=== PATIENT | female | born 1965 | race Caucasian/White ===

== ENCOUNTER → 2019-07-27 | Day surgery (SDC) | payer BC ==
[~2019-07-27] VITALS: Ht 167.6 cm; Wt 88.5 kg
[~2019-07-27] MED LIST: ESCITALOPRAM OX20 MG PO; LEVOTHYROXINE50 MCG PO; LEXAPRO5 M1 PO; PRILOSEC20 M1 PO; SYNTHROID,LEV125 MCG PO
--- NOTE | ~2019-07-27 | O ---
[place], [place] OPERATIVE NOTE NAME: [facility] UNIT #: [id number] ROOM: DOCTOR: CESAR STERLING MD BIRTHDATE: [birth year] DOS: 07/27/2019 GASTROENDOSCOPIC REPORT HISTORY OF PRESENT ILLNESS: A 54-year-old presented with epigastric distress, history of dyspepsia, abdominal pain and epigastric pain. The patient is scheduled already for oophorectomy. ALLERGIES: ASPIRIN. FAMILY HISTORY: Noncontributory. PAST SURGICAL HISTORY: x 2, tubal ligation and T and A. PAST MEDICAL HISTORY: Hypothyroidism, depression, anxiety, gastritis. SOCIAL HISTORY: Smoker, rare alcohol consumer. PROCEDURE: Today's procedure part of investigation is colonoscopy and panendoscopy. PREMEDICATION: Propofol. SCOPE: Olympus forward-viewing gastroscope Q10 video. REPORT: After putting the patient in left lateral position and application of lubricant to the scope, scope was introduced. Thereafter, under direct visualization, advanced through the length of esophagus without difficulty. Gastric pouch was entered. Gastritis seen. Antrum biopsy obtained. Duodenal bulb, second and third part within normal limit. The patient extubated, tolerated the procedure well. IMPRESSION: Gastritis, status post biopsy. PLAN AND DISCUSSION: We are going to address the dyspepsia and the gastritis concerns with omeprazole 40 mg daily. Antireflux measures and follow up as an outpatient. Awaiting H. pylori results. Furthermore, I am going to proceed with colonoscopic evaluation. GASTROENDOSCOPIC REPORT INDICATIONS: The patient has presented with chief complaint of abdominal pain. PROCEDURE #2: Today's procedure part of investigation is colonoscopy plus polypectomy. PREMEDICATION: Propofol. SCOPE: Olympus forward-viewing colonoscope 10L video. [place], [place] OPERATIVE NOTE NAME: KRISTOFER SINHA UNIT #: [id number] ROOM: DOCTOR: CESAR STERLING MD BIRTHDATE: [birth year] DESCRIPTION OF PROCEDURE: After putting the patient in left lateral position and application of lubricant to the scope, the scope was introduced. Thereafter, under direct visualization, advanced through the length of colon without difficulty. Diverticulosis of the colon of moderate degree seen. Base of the cecum explored, appendiceal orifice identified, and ileocecal valve was defined, polypoid lesion in hepatic flexure with piecemeal polypectomy removed, samples of which was recovered. Photographic series of the base of cecum obtained. The patient extubated, tolerated the procedure well. IMPRESSION: Sessile colonic polyp, base of the cecum, status post piecemeal polypectomy, diverticulosis of the colon, status post photographic series. PLAN: High fiber diet. ACTIVITY: Ad evan. FOLLOWUP: As outpatient. Thank you very much indeed. CESAR STERLING MD CM:OPRECORD:OPERATIVE NOTE [id number] CESAR STERLING MD 07/27/19 1330 interface
[2019-07-27 10:50] VITALS: BP 133/76
[2019-07-27 11:58] VITALS: BP 122/71
[2019-07-27 12:14] VITALS: BP 127/77
[2019-07-27 12:21] VITALS: BP 119/80
== END | disposition home or self-care (01) ==
LOC: SDC 07-20 11:00
DX: D12.5 Benign neoplasm of sigmoid colon (principal); K29.50 Unspecified chronic gastritis without bleeding; K57.30 Diverticulosis of large intestine without perforation or abscess without bleeding; I10 Essential (primary) hypertension; F41.9 Anxiety disorder, unspecified; F32.9 Major depressive disorder, single episode, unspecified; G47.30 Sleep apnea, unspecified; E03.9 Hypothyroidism, unspecified; Z98.890 Other specified postprocedural states; Z79.899 Other long term (current) drug therapy; Z88.8 Allergy status to other drugs, medicaments and biological substances; Z87.891 Personal history of nicotine dependence; Z72.89 Other problems related to lifestyle

== ENCOUNTER 2019-12-07 19:45 | Emergency (ER) | payer BC ==
[~2019-12-07] VITALS: Ht 167.6 cm; Wt 90.7 kg
[2019-12-07 22:54] LABS: BASO # 0.1 10*3/uL (0.0-0.1); BASO % 0.6 % (0.0-1.0); EOS # 0.2 10*3/uL (0.0-0.4); EOS % 2.5 % (1.0-4.0); HEMOGLOBIN 13.3 g/dl (12.0-16.0); LYMPH # 2.7 10*3/uL (1.3-4.4); LYMPH % 29.5 % (27.0-41.0); MEAN CELL VOLUME 96.7 fl (81.0-99.0); MEAN CORPUSCULAR HGB 31.4 pg (27.0-31.0); MEAN CORPUSCULAR HGB CONC 32.4 g/dl (33.0-37.0); MEAN PLATELET VOLUME 12.3 fl (9.6-12.3); MONO # 0.7 10*3/uL (0.1-1.0); MONO % 7.3 % (3.0-9.0); NEUT # 5.4 10*3/uL (2.3-7.9); NEUT % 59.8 % (47.0-73.0); PLATELET COUNT AUTOMATED 184 10*3/uL (130-400); RED BLOOD COUNT 4.24 10*6/uL (4.10-5.10); RED CELL DISTRI WIDTH 13.4 % (0-14.5); WHITE BLOOD COUNT 9.1 10*3/uL (4.8-10.8)
[2019-12-07 23:10] LABS: ALBUMIN 3.7 gm/dl (3.1-4.5); ALKALINE PHOSPHATASE 119 U/L (45-117); BUN 15 mg/dl (7-24); CHLORIDE 106 mmol/L (98-107); CREATININE 0.76 mg/dL (0.55-1.02); POTASSIUM 4.1 mmol/L (3.5-5.1); SGOT/AST 21 IU/L (3-35); SGPT/ALT 37 U/L (12-78); SODIUM 139 mmol/L (136-145); TOTAL PROTEIN 7.1 gm/dL (6.4-8.2)
[2019-12-08 00:18] LABS: BILIRUBIN NEGATIVE (NEGATIVE); BLOOD NEGATIVE (NEGATIVE); CLARITY SL CLOUDY (CLEAR); COLOR YELLOW (YELLOW); GLUCOSE NEGATIVE (NEGATIVE); KETONE NEGATIVE (NEGATIVE); LEUKO ESTERASE NEGATIVE (NEGATIVE); NITRITE NEGATIVE (NEGATIVE); PH 6.5 (5.0-9.0); UROBILINOGEN 0.2 E.U./dl (0.2-1.0)
[2019-12-08 00:34] LABS: BACTERIA 1+; WBC 0-2 wbc/hpf (0-5)
== END 2019-12-08 03:46 | disposition home or self-care (01) ==
LOC: ED 19:45
PROVIDERS: Emergency Medicine
DX: K43.9 Ventral hernia without obstruction or gangrene (principal); E03.9 Hypothyroidism, unspecified; I10 Essential (primary) hypertension; Z88.6 Allergy status to analgesic agent; Z79.899 Other long term (current) drug therapy

== ENCOUNTER 2019-12-09 18:46 | Inpatient (IN) | payer BC ==
[~2019-12-09] VITALS: Ht 167.6 cm; Wt 97.3 kg
[2019-12-09 18:54] VITALS: BP 154/90
[2019-12-09 19:47] LABS: BASO # 0.1 10*3/uL (0.0-0.1); BASO % 0.6 % (0.0-1.0); EOS # 0.2 10*3/uL (0.0-0.4); EOS % 2.1 % (1.0-4.0); HEMATOCRIT 40.7 % (37.0-47.0); HEMOGLOBIN 12.9 g/dl (12.0-16.0); LYMPH # 2.4 10*3/uL (1.3-4.4); LYMPH % 29.5 % (27.0-41.0); MEAN CELL VOLUME 97.4 fl (81.0-99.0); MEAN CORPUSCULAR HGB 30.9 pg (27.0-31.0); MEAN CORPUSCULAR HGB CONC 31.7 g/dl (33.0-37.0); MEAN PLATELET VOLUME 12.7 fl (9.6-12.3); MONO # 0.6 10*3/uL (0.1-1.0); MONO % 7.4 % (3.0-9.0); NEUT # 4.9 10*3/uL (2.3-7.9); NEUT % 60.3 % (47.0-73.0); PLATELET COUNT AUTOMATED 171 10*3/uL (130-400); RED BLOOD COUNT 4.18 10*6/uL (4.10-5.10); RED CELL DISTRI WIDTH 13.3 % (0-14.5); WHITE BLOOD COUNT 8.1 10*3/uL (4.8-10.8)
[2019-12-09 20:17] LABS: ALBUMIN 3.5 gm/dl (3.1-4.5); ALKALINE PHOSPHATASE 118 U/L (45-117); BUN 16 mg/dl (7-24); CHLORIDE 106 mmol/L (98-107); CREATININE 0.97 mg/dL (0.55-1.02); POTASSIUM 3.9 mmol/L (3.5-5.1); SGOT/AST 34 IU/L (3-35); SGPT/ALT 45 U/L (12-78); SODIUM 142 mmol/L (136-145); TOTAL PROTEIN 6.9 gm/dL (6.4-8.2)
[2019-12-09 20:36] LABS: BILIRUBIN NEGATIVE (NEGATIVE); BLOOD NEGATIVE (NEGATIVE); CLARITY CLEAR (CLEAR); COLOR YELLOW (YELLOW); GLUCOSE NEGATIVE (NEGATIVE); KETONE NEGATIVE (NEGATIVE); LEUKO ESTERASE NEGATIVE (NEGATIVE); NITRITE NEGATIVE (NEGATIVE)
[2019-12-09 20:58] LABS: BACTERIA 1+; EPITHELIAL CELLS 0-2; WBC 0-2 wbc/hpf (0-5)
--- NOTE | 2019-12-09 22:12 | NUR ---
PT IS RESTING IN BED WITHOUT ANY SIGNS OF ACUTE DISTRESS NOTED AT THIS TIME. WILL CONTINUE TO MONITOR. VS STABLE.
[2019-12-09 22:13] VITALS: BP 146/88
[2019-12-10] VITALS (11 sets, daily range): BP systolic 116–144; BP diastolic 66–94
--- NOTE | 2019-12-10 00:20 | NUR ---
Time: 19 A 54 year old FEMALE admitted to 5E under services of RACHEL PUGH DO. Pt. arrived via bed from ER. Chief complaint: ABDOMINAL PAIN. LAMBERT TOMLIN
[2019-12-10] MEDS ORDERED: EFFEXOR XR150 M1 PO (00:37)
--- NOTE | 2019-12-10 00:50 | NUR ---
AWARE THAT HOME MED WERE VERIFIED
--- NOTE | 2019-12-10 00:54 | NUR ---
PATIENT MEDICATED WITH MORPHINE FOR C/O ABD PAIN 07/02. WILL MONITOR
--- NOTE | 2019-12-10 01:54 | NUR ---
MORPHINE EFFECTIVE FOR PAIN
--- NOTE | 2019-12-10 05:32 | NUR ---
CALLED AND PATIENTS STATUS. STATED THAT HE WILL SEE PATIENT THIS AFTERNOON AND PATIENT IS TO REMAIN NPO.
[2019-12-10 06:39] LABS: BASO # 0.1 10*3/uL (0.0-0.1); BASO % 0.7 % (0.0-1.0); EOS # 0.2 10*3/uL (0.0-0.4); EOS % 3.1 % (1.0-4.0); HEMATOCRIT 41.1 % (37.0-47.0); HEMOGLOBIN 12.9 g/dl (12.0-16.0); LYMPH # 2.8 10*3/uL (1.3-4.4); LYMPH % 41.1 % (27.0-41.0); MEAN CELL VOLUME 97.4 fl (81.0-99.0); MEAN CORPUSCULAR HGB 30.6 pg (27.0-31.0); MEAN CORPUSCULAR HGB CONC 31.4 g/dl (33.0-37.0); MEAN PLATELET VOLUME 12.8 fl (9.6-12.3); MONO # 0.5 10*3/uL (0.1-1.0); MONO % 7.7 % (3.0-9.0); NEUT # 3.2 10*3/uL (2.3-7.9); PLATELET COUNT AUTOMATED 174 10*3/uL (130-400); RED BLOOD COUNT 4.22 10*6/uL (4.10-5.10); RED CELL DISTRI WIDTH 13.3 % (0-14.5); WHITE BLOOD COUNT 6.8 10*3/uL (4.8-10.8)
[2019-12-10 06:51] LABS: ALBUMIN 3.4 gm/dl (3.1-4.5); ALKALINE PHOSPHATASE 110 U/L (45-117); BUN 12 mg/dl (7-24); CHLORIDE 107 mmol/L (98-107); CHOLESTEROL 246 mg/dL (<200); CREATININE 0.84 mg/dL (0.55-1.02); FREE T4 0.84 ng/dl (0.76-1.46); HDL CHOLESTEROL 89 mg/dl (40-60); LDL CHOLESTEROL 144 mg/dL (9-159); PHOSPHOROUS 4.1 mg/dL (2.5-4.9); POTASSIUM 3.8 mmol/L (3.5-5.1); SGOT/AST 23 IU/L (3-35); SGPT/ALT 44 U/L (12-78); SODIUM 142 mmol/L (136-145); TOTAL PROTEIN 6.6 gm/dL (6.4-8.2); TRIGLYCERIDES 66 mg/dl (<150); VLDL CHOLESTEROL 13 mg/dL (6-40)
[2019-12-10 07:22] LABS: VITAMIN D, 25-HYDROXY 22.5 ng/mL (30-100)
--- NOTE | 2019-12-10 14:00 | NUR ---
PATIENT TAKEN TO SURGERY AT THIS TIME.
--- NOTE | 2019-12-10 17:00 | NUR ---
PATIENT MEDICATED WITH MORPHINE AT THIS TIME PER ORDER FOR COMPLAINTS OF POST-OP INCISIONAL PAIN 09/01. WILL MONITOR FOR EFFECTIVENESS.
--- NOTE | 2019-12-10 19:32 | NUR ---
PATIENT INSIST ON HAVING ALL FOUR HAND RAILS UP AT THIS THIS.
--- NOTE | 2019-12-10 20:54 | NUR ---
PATIENT MEDICATED WITH MORPHINE FOR C/O 8/ PAIN. WILL MONITOR
--- NOTE | 2019-12-10 21:54 | NUR ---
MORPHINE SOMEWHTA EFFECTIVE. PATIENT STATED SHE WILL CALL LATER FOR [place].
--- NOTE | 2019-12-10 22:12 | NUR ---
PATIENT MEDICATED WITH NORCO FOR C/O ABD PAIN 04/01. WILL MONITOR
--- NOTE | 2019-12-10 23:12 | NUR ---
NORCO EFFECTIVE FOR PAIN
[2019-12-11] VITALS: BP 110/56
--- NOTE | 2019-12-11 01:06 | NUR ---
PATIENT MEDICATED WITH MORPHINE FOR C/O ABD PAIN 06/01. WILL MONITOR
--- NOTE | 2019-12-11 01:07 | NUR ---
PATIENTS CALLED IN. ASKED IF THERE WAS ANY WAY THAT HE WOULD BE ABLE TO COME DOWN AND SEE HIS . EXPLAINED TO HIM THAT OUR VISITING HOURS. HE STATED THAT SHE IS REPEATEDLY CALLING AND TEXTING HIM AND HE THINKS THAT IT WOULD HELP THE SITUATION IF HE CAME DOWN TO SEE HER. THIS NURSE EXPLAINED ONCE AGAIN THAT VISITING HOURS WERE OVER. PATIENTS PROCEEDED TO HANG UP ON THIS NURSE
--- NOTE | 2019-12-11 01:10 | NUR ---
PATIENT STATED THAT WAS MESSAGING HER AND WAS DRINKING AT HOME. PATIENT STATED SHE WAS FINE.
--- NOTE | 2019-12-11 04:51 | NUR ---
PATIENT MEDICATED WITH NORCO FOR 6/10 ABD PAIN. WILL MONITOR
[2019-12-11 08:00] VITALS: BP 123/62
[2019-12-11 08:49] LABS: BASO % 0.1 % (0.0-1.0); EOS % 0.1 % (1.0-4.0); HEMATOCRIT 38.8 % (37.0-47.0); HEMOGLOBIN 12.4 g/dl (12.0-16.0); LYMPH # 1.1 10*3/uL (1.3-4.4); LYMPH % 7.3 % (27.0-41.0); MEAN CELL VOLUME 98.5 fl (81.0-99.0); MEAN CORPUSCULAR HGB 31.5 pg (27.0-31.0); MEAN PLATELET VOLUME 12.7 fl (9.6-12.3); MONO # 0.6 10*3/uL (0.1-1.0); NEUT # 13.2 10*3/uL (2.3-7.9); NEUT % 87.9 % (47.0-73.0); PLATELET COUNT AUTOMATED 178 10*3/uL (130-400); RED BLOOD COUNT 3.94 10*6/uL (4.10-5.10); RED CELL DISTRI WIDTH 13.1 % (0-14.5)
[2019-12-11 09:06] LABS: ALBUMIN 3.3 gm/dl (3.1-4.5); ALKALINE PHOSPHATASE 112 U/L (45-117); BUN 9 mg/dl (7-24); CHLORIDE 107 mmol/L (98-107); CREATININE 0.89 mg/dL (0.55-1.02); POTASSIUM 4.5 mmol/L (3.5-5.1); SGOT/AST 16 IU/L (3-35); SGPT/ALT 36 U/L (12-78); SODIUM 140 mmol/L (136-145); TOTAL PROTEIN 6.9 gm/dL (6.4-8.2)
--- NOTE | 2019-12-11 09:30 | NUR ---
DRESSING CHANGED TO LEFT LOWER ABD AT THIS TIME. INCISION DRY, WELL APPROXIMATED, NO DRAINAGE OR FOUL ODOR. STAPES INTACT. SCANT AMOUNT OF BLOODY DRAINAGE WAS NOTED TO OLD BANDAGE. PT TOLERATED DRESSING CHANGE WELL.
--- NOTE | 2019-12-11 11:45 | NUR ---
PT MEDICATED WITH PO NORCO AT THIS TIME FOR 6/10 PAIN TO LLQ INCISION. WILL MONITOR FOR EFFECTIVENESS.
[2019-12-11 12:00] VITALS: BP 112/65
--- NOTE | 2019-12-11 15:40 | NUR ---
PT C/O LOWER ABDOMINAL PAIN, RATES PAIN 8 OR 9 ON PAIN SCALE 0-10. MEDICATED WITH NORCO PO PER PRN ORDER, SEE EMAR. CALL LIGHT IN REACH. SEE SHIFT ASSESSMENT.
[2019-12-11 16:00] VITALS: BP 101/56
--- NOTE | 2019-12-11 19:14 | NUR ---
24 HR CHART CHECK COMPLETE.
--- NOTE | 2019-12-11 19:58 | NUR ---
PT IS LAYING IN BED AT THIS TIME. SHE STATES THAT SHE IS EXPERIENCING PAIN AT SURGICAL SITE RATED A 8/10. PRN NORCO ADMINISTERED WELL PRN DULCOLAX FOR C/O CONSTIPATION. BSX4 NORMOACTIVE. DRESSING IS CLEAN DRY AND INTACT WITH THE ADDITIONAL USE OF AN ABDOMINAL BINDER. BED IS LOW, CALL LIGHT WITHIN REACH. WILL CONTINUE TO MONITOR.
[2019-12-11 20:00] VITALS: BP 143/92
--- NOTE | 2019-12-11 20:45 | NUR ---
PT ASLEEP IN BED AT THIS TIME. PRN NORCO EFFECTIVE.
[2019-12-12] VITALS: BP 134/70
[2019-12-12 08:00] VITALS: BP 126/69
--- NOTE | 2019-12-12 08:28 | NUR ---
KRISTOFER SINHA [id number] Please refer to the physician's history and physical for past medical history, comorbid conditions, and allergies. Diagnosis: ACUTE ABDOMINAL PAIN ABDOMINAL HERNIA Vamsi Score: 23,LOW OR NO RISK WOUND DESCRIPTIONS: Patient states she had surgery Thursday morning for a hernia repair. Incision to LLQ has 4x4s and tegaderm dressing at time of assessment. No strikethrough noted at time of assessment. No erythema noted at time of assessment. Patient states this dressing was placed Thursday night. Patient states this area is tender to touch. Surface the patient is resting on: Isoflex SKIN PREVENTION RECOMMENDATION: 1. Pressure redistribution support surface as appropriate 2. Elevate heels 3. Remove boots/TEDS every shift and reapply 4. Head of bed 30 degrees as tolerated 5. Assess nutrition and hydration 6. Manage moisture 7. Avoid the use of containment devices while in bed 8. Use absorptive products on surfaces limit layers of linens on bed 9. Turn and reposition every 1-2 hours in bed and every 1 hour in chair as tolerated 10. Weight shifts every 15 minutes while up in chair 11. Offloading with pillows or device to keep heels elevated off bed 12. Monitor skin at least every shift 13. Inspect under medical devices twice a day WOUND TREATMENT RECOMMENDATIONS: Keep dsd clean dry and intact.
--- NOTE | 2019-12-12 09:00 | NUR ---
Gear Machine Operator General in to talk to patient. Patient states lives at home with tere. There are few steps in the home. Physician: akosua melissa Pharmacy: [facility] [place] health services: none Patient's level of ADLs: INDEPENDENT Patient has working utilities: all working DME: none Follow-up physician's appointment after d/c: will be made by hospitalist nurse director upon discharge Does patient want to access PORTAL?: no Discharge plan discussed with patient, present, she states she lives at home with her , she is independent in adls and ambulation, she states she will return home when medically stable and denies any home needs, case management will follow. USHA DÍAZ
[2019-12-12] MEDS ORDERED: VITAMIN D32000 UNI1 PO (09:52)
[2019-12-12] MEDS ORDERED: BISACODYL LAXATI5 MG PO (09:52)
[2019-12-12] MEDS ORDERED: HYDROCODONE-AC1 EAC1 PO (09:52)
--- NOTE | 2019-12-12 10:15 | NUR ---
CALLED PHARMACY [facility] THEY WILL SEND UP HOME MEDICATIONS
--- NOTE | 2019-12-12 10:17 | NUR ---
IN TO PT ROOM TO DISCUSS DISCHARGE AND PLANS, PT VERBALIZES AGREEMENT. REMOVED IV AT THIS TIME. PT HAS PAPERS AND MEDICATIONS IN HOME PHARMACY. PT AHS NO QUESTIONS AT THIS TIME
--- NOTE | 2019-12-12 10:40 | NUR ---
CALLED DR MOODY PER PT REQUEST WONDERING IF THE CAN GET A SLIP STATING HE HAS BEEN OFF WORK DUE TO CARING FOR HIS . HE STATES OK THAT I CAN WRITE IT OUT
--- NOTE | 2019-12-12 11:00 | NUR ---
PT IS WITH AND IS BEING WHEELED OUT IN A WHEELCHAIR AT THIS TIME
== END 2019-12-12 11:00 | disposition home or self-care (01) | DRG 355 ==
LOC: ED 18:46 → 5E 23:59
PROVIDERS: Emergency Medicine Emergency Medical Services; Family Medicine; Internal Medicine; ADMIT Internal Medicine
PROC: 0WUF0JZ Supplement Abdominal Wall with Synthetic Substitute, Open Approach (ICD-10-PCS; principal; 2019-12-10)
DX: K43.6 Other and unspecified ventral hernia with obstruction, without gangrene (principal); E03.9 Hypothyroidism, unspecified; F32.9 Major depressive disorder, single episode, unspecified; F41.9 Anxiety disorder, unspecified; E55.9 Vitamin D deficiency, unspecified; E66.9 Obesity, unspecified; G89.18 Other acute postprocedural pain; I10 Essential (primary) hypertension; Z68.34 Body mass index [BMI] 34.0-34.9, adult; Z90.721 Acquired absence of ovaries, unilateral; Z98.51 Tubal ligation status; Z88.6 Allergy status to analgesic agent; Z79.899 Other long term (current) drug therapy

== ENCOUNTER 2019-12-29 13:20 | Emergency (ER) | payer BC ==
[~2019-12-29] VITALS: Ht 167.6 cm; Wt 90.7 kg
[~2019-12-29 13:20] MED LIST changes: +BISACODYL LAXATI5 MG PO; +EFFEXOR XR150 M1 PO; +HYDROCODONE-AC1 EAC1 PO; +VITAMIN D32000 UNI1 PO
[2019-12-29 14:08] LABS: BASO # 0.1 10*3/uL (0.0-0.1); BASO % 0.4 % (0.0-1.0); EOS # 0.1 10*3/uL (0.0-0.4); EOS % 0.7 % (1.0-4.0); HEMATOCRIT 39.3 % (37.0-47.0); HEMOGLOBIN 12.7 g/dl (12.0-16.0); LYMPH # 1.5 10*3/uL (1.3-4.4); LYMPH % 12.6 % (27.0-41.0); MEAN CELL VOLUME 96.6 fl (81.0-99.0); MEAN CORPUSCULAR HGB 31.2 pg (27.0-31.0); MEAN CORPUSCULAR HGB CONC 32.3 g/dl (33.0-37.0); MEAN PLATELET VOLUME 12.3 fl (9.6-12.3); MONO % 8.5 % (3.0-9.0); NEUT % 77.5 % (47.0-73.0); PLATELET COUNT AUTOMATED 217 10*3/uL (130-400); RED BLOOD COUNT 4.07 10*6/uL (4.10-5.10); RED CELL DISTRI WIDTH 13.1 % (0-14.5); WHITE BLOOD COUNT 11.6 10*3/uL (4.8-10.8)
[2019-12-29 14:25] LABS: ALBUMIN 3.4 gm/dl (3.1-4.5); ALKALINE PHOSPHATASE 196 U/L (45-117); BUN 10 mg/dl (7-24); CHLORIDE 101 mmol/L (98-107); CREATININE 0.91 mg/dL (0.55-1.02); SGOT/AST 30 IU/L (3-35); SGPT/ALT 46 U/L (12-78); SODIUM 135 mmol/L (136-145); TOTAL PROTEIN 7.4 gm/dL (6.4-8.2)
[2019-12-29 14:26] LABS: TROPONIN I < 0.015 ng/ml (<0.045)
[2019-12-29 14:29] LABS: ACT PARTIAL THROMBO TIME 29.5 SECONDS (20.0-32.1)
[2019-12-29 14:43] LABS: BACTERIA 4+; BILIRUBIN NEGATIVE (NEGATIVE); BLOOD 1+ (NEGATIVE); CLARITY CLOUDY (CLEAR); COLOR YELLOW (YELLOW); EPITHELIAL CELLS 41-50; GLUCOSE NEGATIVE (NEGATIVE); KETONE NEGATIVE (NEGATIVE); LEUKO ESTERASE 2+ (NEGATIVE); NITRITE POSITIVE (NEGATIVE); UROBILINOGEN 0.2 E.U./dl (0.2-1.0); WBC TNTC wbc/hpf (0-5)
[2019-12-29 14:44] LABS: MUCOUS 3+
[2019-12-29] MEDS ORDERED: CIPRO500 MG PO (17:04)
[2019-12-30] MEDS ORDERED: SENNA PLUS 8.61 EACH PO (08:17)
[2019-12-30] MEDS ORDERED: LEXAPRO20 MG PO (11:22)
== END 2019-12-29 17:06 | disposition home or self-care (01) ==
LOC: ED 13:20
PROVIDERS: Emergency Medicine
DX: N12 Tubulo-interstitial nephritis, not specified as acute or chronic (principal); I10 Essential (primary) hypertension; E03.9 Hypothyroidism, unspecified; E66.9 Obesity, unspecified; Z88.6 Allergy status to analgesic agent; Z79.899 Other long term (current) drug therapy; Z68.30 Body mass index [BMI] 30.0-30.9, adult

== ENCOUNTER 2019-12-29 21:18 | Inpatient (IN) | payer BC ==
[~2019-12-29] VITALS: Ht 167.6 cm; Wt 96.6 kg
[~2019-12-29 21:18] MED LIST changes: +CIPRO500 MG PO
[2019-12-29 21:24] VITALS: BP 99/66
[2019-12-29 21:57] LABS: BASO % 0.3 % (0.0-1.0); EOS % 0.2 % (1.0-4.0); HEMATOCRIT 36.8 % (37.0-47.0); HEMOGLOBIN 12.2 g/dl (12.0-16.0); LYMPH % 8.3 % (27.0-41.0); MEAN CELL VOLUME 94.6 fl (81.0-99.0); MEAN CORPUSCULAR HGB 31.4 pg (27.0-31.0); MEAN CORPUSCULAR HGB CONC 33.2 g/dl (33.0-37.0); MEAN PLATELET VOLUME 12.1 fl (9.6-12.3); MONO # 1.1 10*3/uL (0.1-1.0); MONO % 9.1 % (3.0-9.0); NEUT # 9.8 10*3/uL (2.3-7.9); NEUT % 81.7 % (47.0-73.0); PLATELET COUNT AUTOMATED 198 10*3/uL (130-400); RED BLOOD COUNT 3.89 10*6/uL (4.10-5.10); RED CELL DISTRI WIDTH 12.9 % (0-14.5); WHITE BLOOD COUNT 12.1 10*3/uL (4.8-10.8)
[2019-12-29 23:45] VITALS: BP 104/63
[2019-12-30] VITALS: BP 104/63
[2019-12-30 07:46] LABS: BASO % 0.3 % (0.0-1.0); EOS # 0.1 10*3/uL (0.0-0.4); EOS % 0.7 % (1.0-4.0); HEMATOCRIT 34.2 % (37.0-47.0); HEMOGLOBIN 11.1 g/dl (12.0-16.0); LYMPH # 0.9 10*3/uL (1.3-4.4); LYMPH % 7.4 % (27.0-41.0); MEAN CELL VOLUME 96.3 fl (81.0-99.0); MEAN CORPUSCULAR HGB 31.3 pg (27.0-31.0); MEAN CORPUSCULAR HGB CONC 32.5 g/dl (33.0-37.0); MONO # 1.2 10*3/uL (0.1-1.0); MONO % 9.7 % (3.0-9.0); NEUT % 81.5 % (47.0-73.0); PLATELET COUNT AUTOMATED 191 10*3/uL (130-400); RED BLOOD COUNT 3.55 10*6/uL (4.10-5.10); RED CELL DISTRI WIDTH 12.9 % (0-14.5); WHITE BLOOD COUNT 12.3 10*3/uL (4.8-10.8)
[2019-12-30 08:00] VITALS: BP 140/82
[2019-12-30 08:02] LABS: ALBUMIN 2.7 gm/dl (3.1-4.5); ALKALINE PHOSPHATASE 174 U/L (45-117); BUN 7 mg/dl (7-24); CHLORIDE 106 mmol/L (98-107); CREATININE 0.76 mg/dL (0.55-1.02); POTASSIUM 3.8 mmol/L (3.5-5.1); SGOT/AST 50 IU/L (3-35); SGPT/ALT 60 U/L (12-78); SODIUM 137 mmol/L (136-145); TOTAL PROTEIN 6.2 gm/dL (6.4-8.2)
[2019-12-30 08:04] LABS: BILIRUBIN NEGATIVE (NEGATIVE); BLOOD NEGATIVE (NEGATIVE); CLARITY SL CLOUDY (CLEAR); COLOR YELLOW (YELLOW); GLUCOSE NEGATIVE (NEGATIVE); KETONE NEGATIVE (NEGATIVE)
[2019-12-30 08:05] LABS: LEUKO ESTERASE 1+ (NEGATIVE); NITRITE NEGATIVE (NEGATIVE); UROBILINOGEN 0.2 E.U./dl (0.2-1.0)
[2019-12-30 08:15] LABS: BACTERIA 2+; WBC 51-100 wbc/hpf (0-5)
[2019-12-30] MEDS ORDERED: SENNA PLUS 8.61 EACH PO (08:17)
[2019-12-30] MEDS ORDERED: LEXAPRO20 MG PO (11:22)
[2019-12-30 12:00] VITALS: BP 156/90
[2019-12-30 16:00] VITALS: BP 158/79
[2019-12-30 18:08] VITALS: BP 135/88
[2019-12-30 20:00] VITALS: BP 126/66
[2019-12-31] VITALS: BP 130/68
[2019-12-31 06:23] LABS: BASO % 0.5 % (0.0-1.0); EOS # 0.1 10*3/uL (0.0-0.4); EOS % 0.8 % (1.0-4.0); HEMATOCRIT 31.4 % (37.0-47.0); HEMOGLOBIN 10.1 g/dl (12.0-16.0); LYMPH # 1.5 10*3/uL (1.3-4.4); LYMPH % 16.8 % (27.0-41.0); MEAN CELL VOLUME 95.4 fl (81.0-99.0); MEAN CORPUSCULAR HGB 30.7 pg (27.0-31.0); MEAN CORPUSCULAR HGB CONC 32.2 g/dl (33.0-37.0); MEAN PLATELET VOLUME 11.8 fl (9.6-12.3); MONO # 1.2 10*3/uL (0.1-1.0); MONO % 13.8 % (3.0-9.0); NEUT % 67.8 % (47.0-73.0); PLATELET COUNT AUTOMATED 175 10*3/uL (130-400); RED BLOOD COUNT 3.29 10*6/uL (4.10-5.10); RED CELL DISTRI WIDTH 12.9 % (0-14.5); WHITE BLOOD COUNT 8.8 10*3/uL (4.8-10.8)
[2019-12-31 06:37] LABS: ALBUMIN 2.5 gm/dl (3.1-4.5); ALKALINE PHOSPHATASE 211 U/L (45-117); BUN 5 mg/dl (7-24); CHLORIDE 105 mmol/L (98-107); CREATININE 0.78 mg/dL (0.55-1.02); POTASSIUM 3.6 mmol/L (3.5-5.1); SGOT/AST 49 IU/L (3-35); SGPT/ALT 67 U/L (12-78); SODIUM 138 mmol/L (136-145); TOTAL PROTEIN 5.9 gm/dL (6.4-8.2)
[2019-12-31 08:00] VITALS: BP 123/76
[2019-12-31 12:00] VITALS: BP 110/59
[2019-12-31 16:00] VITALS: BP 110/68
[2019-12-31 20:00] VITALS: BP 111/66
[2020-01-01] VITALS: BP 109/61
[2020-01-01 08:00] VITALS: BP 140/80
[2020-01-01 12:00] VITALS: BP 124/76
[2020-01-01 16:00] VITALS: BP 116/77
[2020-01-01 20:00] VITALS: BP 142/80
[2020-01-02] VITALS: BP 104/55
[2020-01-02 06:31] LABS: BASO % 0.4 % (0.0-1.0); EOS # 0.3 10*3/uL (0.0-0.4); HEMATOCRIT 33.4 % (37.0-47.0); HEMOGLOBIN 10.7 g/dl (12.0-16.0); LYMPH % 27.8 % (27.0-41.0); MEAN CELL VOLUME 96.8 fl (81.0-99.0); MEAN PLATELET VOLUME 12.2 fl (9.6-12.3); MONO # 0.7 10*3/uL (0.1-1.0); MONO % 10.4 % (3.0-9.0); PLATELET COUNT AUTOMATED 239 10*3/uL (130-400); RED BLOOD COUNT 3.45 10*6/uL (4.10-5.10); WHITE BLOOD COUNT 7.1 10*3/uL (4.8-10.8)
[2020-01-02 06:55] LABS: ALBUMIN 2.5 gm/dl (3.1-4.5); ALKALINE PHOSPHATASE 241 U/L (45-117); BUN 6 mg/dl (7-24); CHLORIDE 106 mmol/L (98-107); CREATININE 0.74 mg/dL (0.55-1.02); POTASSIUM 3.7 mmol/L (3.5-5.1); SGOT/AST 18 IU/L (3-35); SGPT/ALT 55 U/L (12-78); SODIUM 141 mmol/L (136-145); TOTAL PROTEIN 6.2 gm/dL (6.4-8.2)
[2020-01-02 08:00] VITALS: BP 118/68
[2020-01-02] MEDS ORDERED: Meclizine25 MG PO (10:16)
[2020-01-02] MEDS ORDERED: LEVOFLOXACIN500 MG PO (10:16)
[2020-01-02] MEDS ORDERED: ZOFRAN4 MG PO (10:16)
== END 2020-01-02 10:47 | disposition home or self-care (01) | DRG 871 ==
LOC: ED 21:18 → EDHOLD 22:18 → 5E 22:18
PROVIDERS: Emergency Medicine; Family Medicine; Internal Medicine; Registered Nurse; ADMIT Internal Medicine
DX: A41.9 Sepsis, unspecified organism (principal); E43 Unspecified severe protein-calorie malnutrition; K91.873 Postprocedural seroma of a digestive system organ or structure following other procedure; N12 Tubulo-interstitial nephritis, not specified as acute or chronic; E03.9 Hypothyroidism, unspecified; F32.9 Major depressive disorder, single episode, unspecified; F41.9 Anxiety disorder, unspecified; E55.9 Vitamin D deficiency, unspecified; E66.9 Obesity, unspecified; B96.20 Unspecified Escherichia coli [E. coli] as the cause of diseases classified elsewhere; Z88.6 Allergy status to analgesic agent; Z79.899 Other long term (current) drug therapy; Z68.34 Body mass index [BMI] 34.0-34.9, adult; Z98.51 Tubal ligation status; Z90.721 Acquired absence of ovaries, unilateral

== ENCOUNTER 2020-04-24 22:49 | Emergency (ER) | payer BC ==
[~2020-04-24] VITALS: Ht 167.6 cm; Wt 92.1 kg
[~2020-04-24 22:49] MED LIST changes: +LEVOFLOXACIN500 MG PO; +LEXAPRO20 MG PO; +Meclizine25 MG PO; +SENNA PLUS 8.61 EACH PO; +ZOFRAN4 MG PO
[2020-04-24 23:40] LABS: BASO # 0.1 10*3/uL (0.0-0.1); BASO % 0.6 % (0.0-1.0); EOS # 0.4 10*3/uL (0.0-0.4); EOS % 4.8 % (1.0-4.0); HEMATOCRIT 37.7 % (37.0-47.0); LYMPH # 3.1 10*3/uL (1.3-4.4); LYMPH % 38.1 % (27.0-41.0); MEAN CELL VOLUME 94.5 fl (81.0-99.0); MEAN CORPUSCULAR HGB 30.8 pg (27.0-31.0); MEAN CORPUSCULAR HGB CONC 32.6 g/dl (33.0-37.0); MEAN PLATELET VOLUME 12.5 fl (9.6-12.3); MONO # 0.7 10*3/uL (0.1-1.0); MONO % 8.1 % (3.0-9.0); NEUT # 3.9 10*3/uL (2.3-7.9); PLATELET COUNT AUTOMATED 187 10*3/uL (130-400); RED BLOOD COUNT 3.99 10*6/uL (4.10-5.10); RED CELL DISTRI WIDTH 13.1 % (0-14.5); WHITE BLOOD COUNT 8.1 10*3/uL (4.8-10.8)
[2020-04-24 23:55] LABS: ALBUMIN 3.2 gm/dl (3.1-4.5); ALKALINE PHOSPHATASE 167 U/L (45-117); BUN 9 mg/dl (7-24); CHLORIDE 105 mmol/L (98-107); CREATININE 0.84 mg/dL (0.55-1.02); LIPASE 100 U/L (73-393); POTASSIUM 3.8 mmol/L (3.5-5.1); SGOT/AST 26 IU/L (3-35); SGPT/ALT 52 U/L (12-78); SODIUM 139 mmol/L (136-145); TOTAL PROTEIN 6.9 gm/dL (6.4-8.2)
== END 2020-04-25 02:10 | disposition home or self-care (01) ==
LOC: ED 22:49
PROVIDERS: Nurse Practitioner Family
DX: K59.00 Constipation, unspecified (principal); K21.9 Gastro-esophageal reflux disease without esophagitis; I10 Essential (primary) hypertension; F32.9 Major depressive disorder, single episode, unspecified; E03.9 Hypothyroidism, unspecified; Z88.5 Allergy status to narcotic agent; Z79.899 Other long term (current) drug therapy

== ENCOUNTER 2020-09-01 12:31 | Emergency (ER) | payer BC ==
[~2020-09-01] VITALS: Ht 167.6 cm; Wt 92.1 kg
[2020-09-01 13:11] LABS: BILIRUBIN Negative (Negative); BLOOD 3+ (Negative); CLARITY Turbid (Clear); COLOR Yellow (Yellow); GLUCOSE Negative (Negative); KETONE Negative (Negative); LEUKO ESTERASE 3+ (Negative); NITRITE Negative (Negative); SPECIFIC GRAVITY 1.015 (1.001-1.030); UROBILINOGEN 0.2 E.U./dl (0.0-1.0)
[2020-09-01 13:42] LABS: BACTERIA 4+; RBC TNTC rbc/hpf (0-2); WBC TNTC wbc/hpf (0-5)
[2020-09-01] MEDS ORDERED: PYRIDIUM200 M1 PO (13:49)
[2020-09-01] MEDS ORDERED: CIPRO500 MG PO (13:49)
== END 2020-09-01 13:57 | disposition home or self-care (01) ==
LOC: ED 12:31
PROVIDERS: Nurse Practitioner Family
DX: N39.0 Urinary tract infection, site not specified (principal); E03.9 Hypothyroidism, unspecified; I10 Essential (primary) hypertension; Z79.899 Other long term (current) drug therapy

== ENCOUNTER 2020-10-18 13:23 | Emergency (ER) | payer BC ==
[~2020-10-18 13:23] MED LIST changes: +PYRIDIUM200 M1 PO
== END 2020-10-18 13:35 | disposition home or self-care (01) ==
LOC: ED 13:23
DX: S20.96XA Insect bite (nonvenomous) of unspecified parts of thorax, initial encounter (principal); Z88.5 Allergy status to narcotic agent; Z79.899 Other long term (current) drug therapy; X58.XXXA Exposure to other specified factors, initial encounter; Y93.89 Activity, other specified; Y92.89 Other specified places as the place of occurrence of the external cause; Y99.8 Other external cause status

== ENCOUNTER → 2021-03-14 | Outpatient (CLI) | payer BC, MEDICARE | END | disposition home or self-care (01) | LOC: MAMMO 03-04 08:30 | PROVIDERS: ATTEND Nurse Practitioner Women's Health | DX: R92.8 Other abnormal and inconclusive findings on diagnostic imaging of breast (principal) ==

== ENCOUNTER → 2021-05-13 | Outpatient (CLI) | payer BC, MEDICARE | END | disposition home or self-care (01) | LOC: CARD 04-25 14:00 | PROVIDERS: ATTEND Internal Medicine | DX: R94.31 Abnormal electrocardiogram [ECG] [EKG] (principal) ==

== ENCOUNTER → 2021-06-03 | Outpatient (CLI) | payer BC ==
[~2021-06-03] MED LIST changes: +KENALOG 0.025%15 GM T
[2021-06-03 11:44] LABS: ALBUMIN 3.7 gm/dl (3.1-4.5); BUN 14 mg/dl (7-24); CHLORIDE 106 mmol/L (98-107); CREATININE 0.88 mg/dL (0.55-1.02); POTASSIUM 4.1 mmol/L (3.5-5.1); SODIUM 136 mmol/L (136-145)
[2021-06-03 11:52] LABS: FREE T4 1.28 ng/dl (0.76-1.46); THYROID STIM HORMONE (HS) 0.501 uIU/ml (0.358-4.75)
== END | disposition home or self-care (01) ==
LOC: LAB 10:40
PROVIDERS: ATTEND Internal Medicine
DX: E03.8 Other specified hypothyroidism (principal); E55.9 Vitamin D deficiency, unspecified; E66.9 Obesity, unspecified

== ENCOUNTER 2021-07-08 19:04 | Emergency (ER) | payer BC ==
[~2021-07-08] VITALS: Ht 167.6 cm; Wt 89.4 kg
[~2021-07-08 19:04] MED LIST changes: -KENALOG 0.025%15 GM T
[2021-07-08] MEDS ORDERED: KENALOG 0.025%15 GM T ×2 (19:50)
== END 2021-07-08 20:20 | disposition home or self-care (01) ==
LOC: ED 19:04
DX: S01.81XD Laceration without foreign body of other part of head, subsequent encounter (principal); L25.9 Unspecified contact dermatitis, unspecified cause; X58.XXXD Exposure to other specified factors, subsequent encounter

== ENCOUNTER → 2021-07-22 | Outpatient (CLI) | payer BC ==
[~2021-07-22] MED LIST changes: +KENALOG 0.025%15 GM T
== END | disposition home or self-care (01) ==
LOC: CT 07-03 09:00
PROVIDERS: ATTEND Family Medicine
DX: K57.30 Diverticulosis of large intestine without perforation or abscess without bleeding (principal)

== ENCOUNTER → 2021-08-12 | Outpatient (CLI) | payer BC | END | disposition home or self-care (01) | LOC: COVID19 17:08 | PROVIDERS: ATTEND Internal Medicine | DX: Z11.52 Encounter for screening for COVID-19 (principal) ==

== ENCOUNTER 2022-01-19 22:16 | Emergency (ER) | payer BC ==
[~2022-01-19] VITALS: Ht 162.5 cm; Wt 90.7 kg
[2022-01-19 22:42] LABS: BILIRUBIN Negative (Negative); BLOOD Negative (Negative); CLARITY Cloudy (Clear); COLOR Yellow (Yellow); GLUCOSE Negative (Negative); KETONE Negative (Negative); LEUKO ESTERASE 2+ (Negative); NITRITE Negative (Negative); PH 5.5 (4.5-8.0); SPECIFIC GRAVITY 1.015 (1.001-1.030); UROBILINOGEN 0.2 E.U./dl (0.0-1.0)
[2022-01-19 22:48] LABS: BACTERIA 2+; EPITHELIAL CELLS 41-50
[2022-01-19 22:49] LABS: WBC 31-40 wbc/hpf (0-5); YEAST TRACE
[2022-01-19 23:46] LABS: BASO # 0.1 10*3/uL (0.0-0.1); BASO % 0.6 % (0.0-1.0); EOS # 0.3 10*3/uL (0.0-0.4); EOS % 3.4 % (1.0-4.0); HEMATOCRIT 36.8 % (37.0-47.0); LYMPH # 2.8 10*3/uL (1.3-4.4); LYMPH % 32.9 % (27.0-41.0); MEAN CELL VOLUME 93.9 fl (81.0-99.0); MEAN CORPUSCULAR HGB 30.9 pg (27.0-31.0); MEAN CORPUSCULAR HGB CONC 32.9 g/dl (33.0-37.0); MEAN PLATELET VOLUME 12.6 fl (9.6-12.3); MONO # 0.7 10*3/uL (0.1-1.0); MONO % 7.9 % (3.0-9.0); NEUT # 4.7 10*3/uL (2.3-7.9); NEUT % 54.9 % (47.0-73.0); PLATELET COUNT AUTOMATED 182 10*3/uL (130-400); RED BLOOD COUNT 3.92 10*6/uL (4.10-5.10); RED CELL DISTRI WIDTH 13.3 % (0-14.5); WHITE BLOOD COUNT 8.6 10*3/uL (4.8-10.8)
[2022-01-20 00:02] LABS: ALKALINE PHOSPHATASE 124 U/L (45-117); BUN 15 mg/dl (7-24); CHLORIDE 107 mmol/L (98-107); CREATININE 0.74 mg/dL (0.55-1.02); POTASSIUM 3.9 mmol/L (3.5-5.1); SGOT/AST 26 IU/L (3-35); SGPT/ALT 47 U/L (12-78); SODIUM 139 mmol/L (136-145); TOTAL PROTEIN 6.6 gm/dL (6.4-8.2)
[2022-01-20] MEDS ORDERED: CEPHALEXIN500 M1 PO (01:55)
== END 2022-01-20 02:13 | disposition home or self-care (01) ==
LOC: ED 22:16
PROVIDERS: Emergency Medicine
DX: N39.0 Urinary tract infection, site not specified (principal); K21.9 Gastro-esophageal reflux disease without esophagitis; E03.9 Hypothyroidism, unspecified; E66.9 Obesity, unspecified; Z98.890 Other specified postprocedural states; Z88.6 Allergy status to analgesic agent; Z90.89 Acquired absence of other organs

== ENCOUNTER 2022-03-20 10:57 | Emergency (ER) | payer BC ==
[~2022-03-20] VITALS: Wt 90.7 kg
[~2022-03-20 10:57] MED LIST changes: +CEPHALEXIN500 M1 PO
== END 2022-03-20 11:42 | disposition home or self-care (01) ==
LOC: ED 10:57
DX: S30.861A Insect bite (nonvenomous) of abdominal wall, initial encounter (principal); Z79.899 Other long term (current) drug therapy; Z98.890 Other specified postprocedural states; Z98.51 Tubal ligation status; Z90.89 Acquired absence of other organs; Z88.6 Allergy status to analgesic agent; W57.XXXA Bitten or stung by nonvenomous insect and other nonvenomous arthropods, initial encounter; Y93.89 Activity, other specified; Y92.89 Other specified places as the place of occurrence of the external cause; Y99.8 Other external cause status

== ENCOUNTER → 2022-04-16 | Outpatient (CLI) | payer BC | END | disposition home or self-care (01) | LOC: MAMMO 08:00 | PROVIDERS: ATTEND Nurse Practitioner Women's Health | DX: T85.43XD Leakage of breast prosthesis and implant, subsequent encounter (principal); R92.1 Mammographic calcification found on diagnostic imaging of breast ==

== ENCOUNTER 2022-06-21 08:25 | Emergency (ER) | payer BC ==
[~2022-06-21] VITALS: Ht 167.6 cm; Wt 90.7 kg
[2022-06-21 09:20] LABS: BASO % 0.5 % (0.0-1.0); EOS # 0.1 10*3/uL (0.0-0.4); HEMATOCRIT 39.1 % (37.0-47.0); LYMPH # 0.2 10*3/uL (1.3-4.4); MEAN CORPUSCULAR HGB 31.3 pg (27.0-31.0); MEAN CORPUSCULAR HGB CONC 33.2 g/dl (33.0-37.0); MEAN PLATELET VOLUME 12.4 fl (9.6-12.3); MONO # 0.7 10*3/uL (0.1-1.0); MONO % 8.7 % (3.0-9.0); NEUT # 6.6 10*3/uL (2.3-7.9); NEUT % 86.3 % (47.0-73.0); PLATELET COUNT AUTOMATED 162 10*3/uL (130-400); RED BLOOD COUNT 4.16 10*6/uL (4.10-5.10); RED CELL DISTRI WIDTH 13.3 % (0-14.5); WHITE BLOOD COUNT 7.7 10*3/uL (4.8-10.8)
[2022-06-21 09:36] LABS: ALKALINE PHOSPHATASE 134 U/L (45-117); BUN 12 mg/dl (7-24); CHLORIDE 103 mmol/L (98-107); CREATININE 0.95 mg/dL (0.55-1.02); SGOT/AST 27 IU/L (3-35); SGPT/ALT 57 U/L (12-78); SODIUM 137 mmol/L (136-145); TOTAL PROTEIN 7.1 gm/dL (6.4-8.2)
[2022-06-21 10:26] LABS: BILIRUBIN Negative (Negative); BLOOD Negative (Negative); CLARITY Clear (Clear); COLOR Dark Yellow (Yellow); GLUCOSE Negative (Negative); KETONE Trace (Negative); LEUKO ESTERASE 2+ (Negative); NITRITE Negative (Negative)
[2022-06-21 10:33] LABS: PH 8.5 (4.5-8.0)
[2022-06-21 10:37] LABS: BACTERIA 2+; EPITHELIAL CELLS 16-20
[2022-06-21 10:38] LABS: RBC 0-2 rbc/hpf (0-2)
== END 2022-06-21 13:05 | disposition home or self-care (01) ==
LOC: ED 08:25
PROVIDERS: Emergency Medicine
DX: U07.1 COVID-19 (principal); K21.9 Gastro-esophageal reflux disease without esophagitis; E03.9 Hypothyroidism, unspecified; I10 Essential (primary) hypertension; E66.9 Obesity, unspecified; Z88.6 Allergy status to analgesic agent; Z98.890 Other specified postprocedural states; Z98.51 Tubal ligation status; Z90.89 Acquired absence of other organs

== ENCOUNTER 2022-11-27 02:06 | Emergency (ER) | payer BC ==
[~2022-11-27] VITALS: Ht 167.6 cm; Wt 100.8 kg
[2022-11-27] MEDS ORDERED: OXYBUTYNIN10 MG PO (02:24)
[2022-11-27] MEDS ORDERED: VENLAFAXINE H37.5 M5 PO (02:24)
[2022-11-27] MEDS ORDERED: BUPROPION XL300 MG PO (02:24)
[2022-11-27] MEDS ORDERED: HYDROXYZINE PAM25 M1 PO (02:25)
[2022-11-27] MEDS ORDERED: ESCITALOPRAM OX20 MG PO (02:25)
[2022-11-27 03:07] LABS: BASO % 0.3 % (0.0-1.0); EOS # 0.3 10*3/uL (0.0-0.4); EOS % 2.3 % (1.0-4.0); HEMATOCRIT 39.4 % (37.0-47.0); LYMPH # 2.4 10*3/uL (1.3-4.4); LYMPH % 18.6 % (27.0-41.0); MEAN CELL VOLUME 95.9 fl (81.0-99.0); MEAN CORPUSCULAR HGB 31.1 pg (27.0-31.0); MEAN CORPUSCULAR HGB CONC 32.5 g/dl (33.0-37.0); MONO # 1.1 10*3/uL (0.1-1.0); MONO % 8.3 % (3.0-9.0); PLATELET COUNT AUTOMATED 189 10*3/uL (130-400); RED BLOOD COUNT 4.11 10*6/uL (4.10-5.10); RED CELL DISTRI WIDTH 13.1 % (0-14.5); WHITE BLOOD COUNT 12.8 10*3/uL (4.8-10.8)
[2022-11-27 03:19] LABS: ACT PARTIAL THROMBO TIME 28.2 SECONDS (20.0-32.1)
[2022-11-27 03:22] LABS: ALKALINE PHOSPHATASE 172 U/L (46-116); BUN 9 mg/dl (9-23); CHLORIDE 102 mmol/L (98-107); POTASSIUM 3.8 mmol/L (3.4-5.1); SGPT/ALT 95 U/L (10-49); TOTAL PROTEIN 6.8 gm/dL (6.0-8.0)
[2022-11-27] MEDS ORDERED: PREDNISONE20 M1 PO (05:33)
[2022-11-27] MEDS ORDERED: ALBUTEROL2.5 MG/0.5 INH (05:33)
== END 2022-11-27 05:41 | disposition home or self-care (01) ==
LOC: ED 02:06
PROVIDERS: Emergency Medicine
DX: R05.9 Cough, unspecified (principal); Z20.822 Contact with and (suspected) exposure to COVID-19; R09.81 Nasal congestion; R06.02 Shortness of breath; Z88.6 Allergy status to analgesic agent; Z79.899 Other long term (current) drug therapy; Z98.890 Other specified postprocedural states; Z90.89 Acquired absence of other organs; Z98.51 Tubal ligation status

== ENCOUNTER 2022-12-01 02:18 | Emergency (ER) | payer BC ==
[~2022-12-01] VITALS: Ht 167.6 cm; Wt 100.0 kg
[~2022-12-01 02:18] MED LIST changes: +ALBUTEROL2.5 MG/0.5 INH; +BUPROPION XL300 MG PO; +HYDROXYZINE PAM25 M1 PO; +OXYBUTYNIN10 MG PO; +PREDNISONE20 M1 PO; +VENLAFAXINE H37.5 M5 PO
[2022-12-01 02:56] LABS: HEMATOCRIT 38.7 % (37.0-47.0); MEAN CELL VOLUME 93.7 fl (81.0-99.0); MEAN CORPUSCULAR HGB 31.5 pg (27.0-31.0); MEAN CORPUSCULAR HGB CONC 33.6 g/dl (33.0-37.0); MEAN PLATELET VOLUME 11.7 fl (9.6-12.3); PLATELET COUNT AUTOMATED 261 10*3/uL (130-400); RED BLOOD COUNT 4.13 10*6/uL (4.10-5.10); RED CELL DISTRI WIDTH 13.2 % (0-14.5); WHITE BLOOD COUNT 18.4 10*3/uL (4.8-10.8)
[2022-12-01 02:57] LABS: MANUAL DIFF REFLEX YES
[2022-12-01 03:22] LABS: ALKALINE PHOSPHATASE 147 U/L (46-116); BUN 14 mg/dl (9-23); CHLORIDE 101 mmol/L (98-107); POTASSIUM 3.7 mmol/L (3.4-5.1); SGPT/ALT 68 U/L (10-49); TOTAL PROTEIN 6.8 gm/dL (6.0-8.0)
[2022-12-01 03:30] LABS: ETHYL ALCOHOL < 3.0 mg/dl (<3)
[2022-12-01 03:37] LABS: PLATELET SUFFICIENCY NORMAL (NORMAL); TOTAL CELLS COUNTED 100 #CELLS
[2022-12-01] MEDS ORDERED: BENZONATATE100 M1 PO (04:23)
== END 2022-12-01 04:37 | disposition home or self-care (01) ==
LOC: ED 02:18
PROVIDERS: Internal Medicine
DX: J20.8 Acute bronchitis due to other specified organisms (principal); D72.829 Elevated white blood cell count, unspecified; Z88.8 Allergy status to other drugs, medicaments and biological substances; Z98.51 Tubal ligation status; Z90.89 Acquired absence of other organs; Z98.890 Other specified postprocedural states; F10.90 Alcohol use, unspecified, uncomplicated

== ENCOUNTER 2023-03-24 11:34 | Emergency (ER) | payer BC ==
[~2023-03-24] VITALS: Ht 167.6 cm; Wt 90.7 kg
[~2023-03-24 11:34] MED LIST changes: +BENZONATATE100 M1 PO
[2023-03-24] MEDS ORDERED: LISINOPRIL10 M1 PO (11:59)
== END 2023-03-24 12:17 | disposition home or self-care (01) ==
LOC: ED 11:34
DX: I10 Essential (primary) hypertension (principal); E03.9 Hypothyroidism, unspecified; F41.9 Anxiety disorder, unspecified; F32.A Depression, unspecified; Z88.6 Allergy status to analgesic agent; Z98.890 Other specified postprocedural states; Z98.51 Tubal ligation status; Z90.89 Acquired absence of other organs

== ENCOUNTER → 2023-05-29 | Outpatient (CLI) | payer BC ==
[~2023-05-29] MED LIST changes: +LISINOPRIL10 M1 PO
== END | disposition home or self-care (01) ==
LOC: RAD 11:54
PROVIDERS: ATTEND Family Medicine
DX: R05.3 Chronic cough (principal)

== ENCOUNTER 2023-06-28 20:09 | Emergency (ER) | payer BC ==
[2023-06-28] MEDS ORDERED: ZITHROMAX250 MG PO (21:44)
[2023-06-28] MEDS ORDERED: PREDNISONE20 M1 PO (21:44)
== END 2023-06-28 21:54 | disposition home or self-care (01) ==
LOC: ED 20:09
DX: J40 Bronchitis, not specified as acute or chronic (principal); E03.9 Hypothyroidism, unspecified; Z20.822 Contact with and (suspected) exposure to COVID-19; Z88.6 Allergy status to analgesic agent; Z79.899 Other long term (current) drug therapy; Z98.890 Other specified postprocedural states; Z98.51 Tubal ligation status; Z90.89 Acquired absence of other organs

== ENCOUNTER 2023-07-27 15:52 | Emergency (ER) | payer BC ==
[~2023-07-27] VITALS: Ht 167.6 cm; Wt 90.7 kg
[~2023-07-27 15:52] MED LIST changes: +ZITHROMAX250 MG PO
[2023-07-27] MEDS ORDERED: BUPROPION HYDR150 M3 PO (16:30)
[2023-07-27] MEDS ORDERED: OXYBUTYNIN ER15 MG PO (16:30)
[2023-07-27] MEDS ORDERED: NAPROSYN500 MG PO (17:48)
== END 2023-07-27 17:50 | disposition home or self-care (01) ==
LOC: ED 15:52
DX: S70.02XA Contusion of left hip, initial encounter (principal); S80.02XA Contusion of left knee, initial encounter; M79.662 Pain in left lower leg; M25.551 Pain in right hip; R42 Dizziness and giddiness; Z88.6 Allergy status to analgesic agent; Z79.899 Other long term (current) drug therapy; Z79.2 Long term (current) use of antibiotics; Z98.890 Other specified postprocedural states; Z98.51 Tubal ligation status; Z90.89 Acquired absence of other organs; Z90.721 Acquired absence of ovaries, unilateral; W18.09XA Striking against other object with subsequent fall, initial encounter; Y93.01 Activity, walking, marching and hiking; Y92.098 Other place in other non-institutional residence as the place of occurrence of the external cause; Y99.8 Other external cause status

== ENCOUNTER → 2024-02-23 | Outpatient (CLI) | payer BC ==
[~2024-02-23] MED LIST changes: +BUPROPION HYDR150 M3 PO; +NAPROSYN500 MG PO; +OXYBUTYNIN ER15 MG PO
== END | disposition home or self-care (01) ==
LOC: MAMMO 01-12 15:30
PROVIDERS: ATTEND Nurse Practitioner Women's Health
DX: T85.43XD Leakage of breast prosthesis and implant, subsequent encounter (principal); X58.XXXD Exposure to other specified factors, subsequent encounter

== ENCOUNTER → 2025-02-24 | Outpatient (CLI) | payer BC | END | disposition home or self-care (01) | LOC: RAD 14:56 | PROVIDERS: ATTEND Family Medicine | DX: R07.81 Pleurodynia (principal); Z90.12 Acquired absence of left breast and nipple ==

== ENCOUNTER → 2025-05-17 | Outpatient (CLI) | payer BC ==
[2025-05-17 08:22] LABS: BASO # 0.1 10*3/uL (0.0-0.1); BASO % 0.8 % (0.0-1.0); EOS # 0.3 10*3/uL (0.0-0.4); EOS % 4.1 % (1.0-4.0); HEMATOCRIT 38.5 % (37.0-47.0); MEAN CELL VOLUME 96.7 fl (81.0-99.0); MEAN CORPUSCULAR HGB 31.7 pg (27.0-31.0); MEAN CORPUSCULAR HGB CONC 32.7 g/dl (33.0-37.0); MEAN PLATELET VOLUME 12.6 fl (9.6-12.3); MONO # 0.5 10*3/uL (0.1-1.0); MONO % 7.9 % (3.0-9.0); NEUT # 3.5 10*3/uL (2.3-7.9); NEUT % 54.6 % (47.0-73.0); PLATELET COUNT AUTOMATED 178 10*3/uL (130-400); RED BLOOD COUNT 3.98 10*6/uL (4.10-5.10); RED CELL DISTRI WIDTH 13.9 % (0-14.5); WHITE BLOOD COUNT 6.4 10*3/uL (4.8-10.8)
[2025-05-17 08:47] LABS: BUN 15 mg/dl (9-23); CHLORIDE 103 mmol/L (98-107); POTASSIUM 4.1 mmol/L (3.4-5.1)
== END | disposition home or self-care (01) ==
LOC: LAB 07:46
PROVIDERS: Student in an Organized Health Care Education/Training Program; ATTEND Family Medicine
DX: Z01.818 Encounter for other preprocedural examination (principal); I44.7 Left bundle-branch block, unspecified; I51.7 Cardiomegaly

== ENCOUNTER → 2025-05-18 | Outpatient (CLI) | payer BC | END | disposition home or self-care (01) | LOC: MAMMO 02:06 | PROVIDERS: ATTEND Nurse Practitioner Women's Health | DX: T85.43XD Leakage of breast prosthesis and implant, subsequent encounter (principal); R92.323 Mammographic fibroglandular density, bilateral breasts; Y84.8 Other medical procedures as the cause of abnormal reaction of the patient, or of later complication, without mention of misadventure at the time of the procedure; Y92.89 Other specified places as the place of occurrence of the external cause ==

== ENCOUNTER → 2025-07-19 | Outpatient (CLI) | payer BC ==
[2025-07-19 11:35] LABS: BUN 17 mg/dl (9-23); SGPT/ALT 45 U/L (5-49)
== END ==
LOC: LAB 10:27
PROVIDERS: ATTEND Orthopaedic Surgery
DX: R63.1 Polydipsia (principal); Z79.1 Long term (current) use of non-steroidal anti-inflammatories (NSAID)

== ENCOUNTER 2025-11-22 12:00 | Emergency (ER) | payer BC ==
[~2025-11-22] VITALS: Wt 95.3 kg
[2025-11-22] MEDS ORDERED: MG-AL HYDROXIDE/SIMETICONE 30 ML UDC PO STA (12:24)
[2025-11-22] MEDS ORDERED: Dicyclomine Hydrochloride 20 MG/10 ML OSYR PO STA (12:24)
[2025-11-22] MEDS ORDERED: FAMOTIDINE 20 MG TAB PO ONE (12:25)
[2025-11-22] MEDS ORDERED: SODIUM CHLORIDE 0.9% 1,000 ML IV ONE (12:25)
[2025-11-22] MEDS ORDERED: IOHEXOL 300 MG/ML 100 ML VIAL IV ONE (12:30)
[2025-11-22 12:37] LABS: BASO # 0.0 10*3/uL (0.0-0.1); BASO % 0.5 % (0.0-1.0); EOS # 0.2 10*3/uL (0.0-0.4); EOS % 2.6 % (1.0-4.0); MEAN CELL VOLUME 96.6 fl (81.0-99.0); MEAN CORPUSCULAR HGB 31.5 pg (27.0-31.0); MEAN PLATELET VOLUME 11.8 fl (9.6-12.3); MONO # 0.4 10*3/uL (0.1-1.0); MONO % 6.7 % (3.0-9.0); NEUT # 3.9 10*3/uL (2.3-7.9); NEUT % 63.4 % (47.0-73.0); NUCLEATED RED BLOOD CELL 0.0 % (0.0-0.0); NUCLEATED RED BLOOD CELL 0.0 10*3/uL (0.0-0.0); PLATELET COUNT AUTOMATED 192 10*3/uL (130-400); RED CELL DISTRI WIDTH 13.2 % (0-14.5)
[2025-11-22 12:57] LABS: BILIRUBIN Negative (Negative); BLOOD Negative (Negative); CLARITY Clear (Clear); COLOR Yellow (Yellow); KETONE Negative (Negative); LEUKO ESTERASE Trace (Negative); NITRITE Negative (Negative); PH 7.0 (4.5-8.0); SPECIFIC GRAVITY 1.020 (1.001-1.030); UROBILINOGEN 1.0 E.U./dl (0.0-1.0)
[2025-11-22 13:00] LABS: BUN 13 mg/dl (9-23); SGPT/ALT 27 U/L (5-49)
[2025-11-22 13:03] LABS: BACTERIA 2+; EPITHELIAL CELLS 21-30; MUCOUS 1+; RBC 0-2 rbc/hpf (0-2)
[2025-11-22] MEDS ORDERED: Ondansetron Hydrochloride 4 MG/2 ML VIAL IV ONE (14:45)
[2025-11-22] MEDS ORDERED: AMOX-CLAV 875-1 EACH PO (15:53)
[2025-11-22] MEDS ORDERED: Ondansetron4 MG PO (15:53)
[2025-11-22] MEDS ORDERED: PEPCID40 MG PO (15:53)
== END 2025-11-22 15:56 | disposition home or self-care (01) ==
LOC: ED 12:00
PROVIDERS: Nurse Practitioner Family
DX: R10.13 Epigastric pain (principal); I88.0 Nonspecific mesenteric lymphadenitis; I10 Essential (primary) hypertension; E03.9 Hypothyroidism, unspecified; K21.9 Gastro-esophageal reflux disease without esophagitis; F41.9 Anxiety disorder, unspecified; G47.30 Sleep apnea, unspecified; F32.A Depression, unspecified; Z98.890 Other specified postprocedural states; Z90.89 Acquired absence of other organs; Z88.6 Allergy status to analgesic agent